=== PATIENT | female | born 1950 ===

== ENCOUNTER 2017-04-10 17:48 | Emergency (ER) | payer OTHER ==
[2017-04-10] MEDS ORDERED: Amoxicillin/Clavulanate TAB* 875 MG PO ONE (20:13)
--- NOTE | 2017-04-10 20:36 | UC ---
Throat Pain/Nasal Feroz HPI - HPI Summary HPI Summary: THREE DAYS OF SORE THROAT, HEAD CONGESTION ,WHEEZING AND COUGH, HOARSENESS OF VOICE. NO FEVER. - History of Current Complaint Chief Complaint: UCGeneralIllness Stated Complaint: SORE THROAT,COUGH Time Seen by Provider: 04/10/17 20:00 Hx Obtained From: Patient Onset/Duration: Gradual Onset, Lasting Days, Still Present Severity: Moderate Cough: Nonproductive Associated Signs & Symptoms: Positive: Dysphagia, Wheezing, Hoarseness, Sinus Discomfort, Nasal Discharge - Epiglottits Risk Factors Epiglottis Risk Factors: Negative - Allergies/Home Medications Allergies/Adverse Reactions: Allergies Allergy/AdvReac Type Severity Reaction Status Date / Time No Known Allergies Allergy Verified 04/10/17 19:05 Home Medications: Home Medications Aspirin [Aspirin 81 MG TAB] 81 mg PO DAILY 04/10/17 [History Confirmed 04/10/17] Cholecalciferol TAB* [Vitamin D TAB*] 3,000 unit PO SEE INSTRUCTIONS 04/10/17 [ History Confirmed 04/10/17] Glipizide [Glucotrol] 20 mg PO DAILY 04/10/17 [History Confirmed 04/10/17] Ibuprofen [Ibuprofen 200 MG] 400 mg PO Q6H PRN 04/10/17 [History Confirmed 04/10] Linagliptin (NF) [Tradjenta (NF)] 5 mg PO DAILY 04/10/17 [History Confirmed ] Lisinopril TAB* [Prinivil TAB*] 5 mg PO DAILY 04/10/17 [History Confirmed ] Multiple Vitamin [Multi Vitamin] 1 tab PO DAILY 04/10/17 [History Confirmed ] Propranolol TAB* [Inderal TAB*] 40 mg PO BID 04/10/17 [History Confirmed ] Rosuvastatin Calcium [Crestor] 20 mg PO DAILY 04/10/17 [History Confirmed ] PMH/Surg Hx/FS Hx/Imm Hx Previously Healthy: Yes Endocrine History Of: Reports: Diabetes Cardiovascular History Of: Reports: Hypertension - Surgical History Surgical History: Yes Surgery Procedure, Year, and Place: LEFT ANKLE SX WITH HARDWARE--1974. C-SECT-- 1986 - Family History Known Family History: Negative: Respiratory Disease - Social History Occupation: Employed Full-time Lives: With Family Alcohol Use: None Substance Use Type: None Smoking Status (MU): Former Smoker When Did the Patient Quit Smoking/Using Tobacco: 2013 Review of Systems Constitutional: Fatigue Skin: Negative Eyes: Negative ENT: Sore Throat, Nasal Discharge Respiratory: Cough Cardiovascular: Negative Gastrointestinal: Negative Genitourinary: Negative Motor: Negative Neurovascular: Negative Musculoskeletal: Negative Neurological: Negative Psychological: Negative All Other Systems Reviewed And Are Negative: Yes Physical Exam Triage Information Reviewed: Yes Appearance: Well-Appearing, No Pain Distress, Well-Nourished Vital Signs: Initial Vital Signs Temp 97.8 F 04/10/17 18:57 Pulse 91 04/10/17 18:57 Resp 16 04/10/17 18:57 BP 132/64 04/10/17 18:57 Pulse Ox 97 04/10/17 18:57 Vital Signs Reviewed: Yes Eye Exam: Normal ENT: Positive: Hearing grossly normal, Pharynx normal, Nasal congestion, TM bulging, TM dull Dental Exam: Normal Neck exam: Normal Neck: Positive: Supple, Nontender, No Lymphadenopathy Respiratory: Positive: Chest non-tender, No respiratory distress, No accessory muscle use, Wheezing Cardiovascular Exam: Normal Cardiovascular: Positive: RRR, No Murmur, Pulses Normal Abdominal Exam: Normal Musculoskeletal Exam: Normal Neurological Exam: Normal Psychological Exam: Normal Skin Exam: Normal Throat Pain/Nasal Course/Dx - Differential Dx/Diagnosis Differential Diagnosis/HQI/PQRI: Pharyngitis, Sinusitis, Tonsillitis, URI Provider Diagnoses: SINUSITIS. TONSILLITIS Discharge - Discharge Plan Condition: Stable Disposition: HOME Prescriptions: Albuterol HFA INHALER* [Ventolin HFA Inhaler*] 1 - 2 puff INH Q6H PRN #1 mdi PRN Reason: Wheezing Amoxicillin/Clavulanate TAB* [Augmentin TAB 875*] 875 mg PO BID #20 tab Patient Education Materials: Sinusitis (ED), Acute Bronchitis (ED) Referrals: Suzette Chen MD [Primary Care Provider] -
[2017-04-10 20:56] VITALS: BP 126/82
== END 2017-04-10 20:58 | disposition home or self-care (01) ==
LOC: UCCORT 17:48
DX: J32.9 Chronic sinusitis, unspecified (principal); J03.90 Acute tonsillitis, unspecified; E11.9 Type 2 diabetes mellitus without complications; Z79.84 Long term (current) use of oral hypoglycemic drugs; I10 Essential (primary) hypertension; Z87.891 Personal history of nicotine dependence
CPT/HCPCS: 99202; A9270-GY; G0463